=== PATIENT | female | born 1940 | race Caucasian/White ===

== ENCOUNTER 2024-05-06 10:05 | Emergency (ER) | payer MEDICARE, BC ==
[2024-05-06] VITALS (12 sets, daily range): BP systolic 106–131; BP diastolic 56–76
[~2024-05-06] VITALS: Ht 162.6 cm; Wt 91.6 kg
[2024-05-06 10:33] LABS: BASO% 0.6 % (0-3); EOS% 3.6 % (0-8); HEMATOCRIT 44.5 % (37.0-47.0); IMMATURE GRANULOCYTES 0.2 % (0.0-5.0); LYMPH% 27.1 % (15-41); MEAN CELL VOLUME 92.1 fL CALC (80.0-100.0); MEAN CORPUSCULAR HGB CONC 31.5 g/dL CAL (32.0-36.0); MONO% 8.7 % (2-13); NEUT# 5.32 thou/uL (2.00-7.15); NEUT% 59.8 % (42-76); RED BLOOD COUNT 4.83 mill/uL (4.20-5.60); RED CELL DISTRI WIDTH 14.3 % (11.5-15.5)
[2024-05-06] MEDS ORDERED: LEVOTHYROXIN50 MCG PO (10:33)
[2024-05-06] MEDS ORDERED: TORSEMIDE20 M1 PO (10:34)
[2024-05-06] MEDS ORDERED: METOPROLOL TAR100 MG PO (10:34)
[2024-05-06] MEDS ORDERED: ISOSORB MONO30 MG PO (10:35)
[2024-05-06] MEDS ORDERED: AMBIEN10 MG PO (10:35)
[2024-05-06] MEDS ORDERED: CRESTOR20 MG PO (10:37)
[2024-05-06] MEDS ORDERED: ALLOPURINOL200 MG (10:37)
[2024-05-06] MEDS ORDERED: CELEBREX100 M1 PO (10:38)
[2024-05-06 10:51] LABS: INTERNATIONAL NORMALIZED RATIO 1.1 RATIO (0.7-1.3)
[2024-05-06 10:54] LABS: PROTHROMBIN TIME 10.8 SECONDS (9.0-12.5)
== END 2024-05-06 14:11 | disposition home or self-care (01) ==
LOC: ED 10:05
PROVIDERS: Family Medicine
DX: I48.91 Unspecified atrial fibrillation (principal); I48.92 Unspecified atrial flutter; I25.10 Atherosclerotic heart disease of native coronary artery without angina pectoris; Z95.5 Presence of coronary angioplasty implant and graft

== ENCOUNTER 2024-07-04 07:53 | Emergency (ER) | payer MEDICARE, BC ==
[2024-07-04] VITALS (14 sets, daily range): BP systolic 103–155; BP diastolic 40–92
[~2024-07-04] VITALS: Ht 162.6 cm; Wt 92.9 kg
[~2024-07-04 07:53] MED LIST: ALLOPURINOL200 MG; AMBIEN10 MG PO; CELEBREX100 M1 PO; CRESTOR20 MG PO; ISOSORB MONO30 MG PO; LEVOTHYROXIN50 MCG PO; METOPROLOL TAR100 MG PO; TORSEMIDE20 M1 PO
[2024-07-04] MEDS ORDERED: ELIQUIS5 MG PO (08:08)
[2024-07-04 08:11] LABS: BASO% 0.8 % (0-3); EOS% 4.1 % (0-8); HEMATOCRIT 44.6 % (37.0-47.0); HEMOGLOBIN 14.2 g/dl (12.0-16.0); IMMATURE GRANULOCYTES 0.3 % (0.0-5.0); LYMPH% 32.6 % (15-41); MEAN CELL VOLUME 90.3 fL CALC (80.0-100.0); MEAN CORPUSCULAR HGB 28.7 pG CALC (26.0-32.0); MEAN CORPUSCULAR HGB CONC 31.8 g/dL CAL (32.0-36.0); MONO% 10.6 % (2-13); NEUT# 3.81 thou/uL (2.00-7.15); NEUT% 51.6 % (42-76); RED BLOOD COUNT 4.94 mill/uL (4.20-5.60); RED CELL DISTRI WIDTH 13.9 % (11.5-15.5)
[2024-07-04 08:40] LABS: BILIRUBIN, TOTAL 1.3 mg/dL (0.02-1.3); CREATININE 1.1 mg/dL (0.5-1.0); POTASSIUM 3.4 mmol/l (3.5-5.1); TOTAL PROTEIN 7.1 g/dL (6.3-8.2)
[2024-07-04 09:11] LABS: TSH, 3RD GENERATION 3.57 uIU/mL (0.47 - 4.68)
[2024-07-04 09:19] LABS: URINE BILIRUBIN - DIPSTICK Negative (NEGATIVE); URINE BLOOD DIPSTICK Trace-intact (NEGATIVE); URINE COLOR Yellow; URINE GLUCOSE - DIPSTICK Negative (NEGATIVE); URINE KETONE Negative (NEGATIVE); URINE LEUK ESTERASE Negative (NEGATIVE); URINE NITRITE - DIPSTICK Negative (Negative); URINE PH 6.5 (4.5-8.0); URINE PROTEIN - DIPSTICK Negative (NEG-TRACE); URINE SPECIFIC GRAVITY 1.015; URINE UROBILINOGEN - DIPSTICK 0.2 E.U./dL (0.2)
[2024-07-04] MEDS ORDERED: POTASSIUM CHLORIDE 20 MEQ/TAB PO ONE (10:30)
[2024-07-04 10:58] LABS: MAGNESIUM 2.1 mg/dL (1.6-2.3)
[2024-07-04] MEDS ORDERED: K-TAB20 MEQ PO (11:18)
== END 2024-07-04 11:40 | disposition home or self-care (01) ==
LOC: ED 07:53
PROVIDERS: Family Medicine
DX: R00.2 Palpitations (principal); I48.91 Unspecified atrial fibrillation; I10 Essential (primary) hypertension; Z95.5 Presence of coronary angioplasty implant and graft; Z79.01 Long term (current) use of anticoagulants; Z20.822 Contact with and (suspected) exposure to COVID-19